=== PATIENT | male | born 1975 | race Caucasian/White ===

== ENCOUNTER 2017-08-13 11:47 | Emergency (ER) | payer OTHER ==
--- NOTE | 2017-08-13 14:00 | ED Physician Documentation ---
History of Present Illness - Stated complaint Stated Complaint: R FOOT SWOLLEN/REDNESS - Chief complaint Chief Complaint: Ext Problem - History obtained from History obtained from: Patient - History of Present Illness Timing: How many days ago (2) Pain level max: 9 Pain level now: 5 - Additonal information Additional information: Patient is a 41-year-old male who presents to the emergency department with redness swelling and pain to the right first metatarsal phalangeal joint. Does not have a history of similar, but there is a strong family history of gout. Had been on meloxicam, but stopped this due for upcoming eye surgery. Pain is worse with weightbearing, better with rest. No fevers. No injury. Review of Systems Constitutional: denies: Fever Skin: denies: Rash Musculoskeletal: denies: Neck pain, Back pain Neurologic: denies: Headache PD PAST MEDICAL HISTORY - Past Medical History Past Medical History: No - Present Medications Home Medications: Ambulatory Orders Medication Instructions Recorded Confirmed predniSONE [Prednisone] 40 mg PO DAILY #10 tablet 08/13/17 - Allergies Allergies/Adverse Reactions: Allergies Allergy/AdvReac Type Severity Reaction Status Date / Time No Known Drug Allergies Allergy Verified 08/13/17 12:06 - Living Situation Living Situation: reports: With family Living Arrangement: reports: At home - Social History Does the pt have substance abuse?: No PD ED PE NORMAL - Vitals Vital signs reviewed: Yes - General General: Alert and oriented X 3, No acute distress - Derm Derm: Warm and dry - Extremities Extremities: Other (R 1st MTP - erythematous, mild swelling. no warmth. FROM. NVI. ) - Neuro Neuro: Alert and oriented X 3 - Psych Psych: Normal mood, Normal affect Results - Vitals Vitals: Vital Signs - 24 hr 08/13/17 08/13/17 12:01 14:47 Temperature 36.8 C 37.2 C Heart Rate 82 73 Respiratory 16 20 Rate Blood Pressure 148/89 H 131/90 H O2 Saturation 98 97 Oxygen O2 Source Room air PD MEDICAL DECISION MAKING - ED course Complexity details: considered differential, d/w patient, d/w family ED course: Patient is a 41-year-old male who presents to the emergency department with what appears to be gouty arthritis. Likely if this flared since stopping his meloxicam for his upcoming surgery. Given colchicine here and will place on a short course of prednisone. Placed in a postoperative shoe for comfort. No evidence of infection, septic joint. Patient counseled regarding signs and symptoms for which I believe and urgent re-evaluation would be necessary. Patient with good understanding of and agreement to plan and is comfortable going home at this time This document was made in part using voice recognition software. While efforts are made to proofread this document, sound alike and grammatical errors may occur. Departure - Departure Disposition: 01 Home, Self Care Clinical Impression: Gouty arthritis of right great toe Condition: Good Instructions: ED Arthritis Gout Follow-Up: Provider,Other [Primary Care Provider] - Within 1 week Prescriptions: predniSONE [Prednisone] 40 mg PO DAILY #10 tablet Comments: Return if you worsen. Take all prednisone until gone. Drink plenty of water. Discharge Date/Time: 08/13/17 14:47
[2017-08-13] MEDS ORDERED: COLCHICINE 0.6 MG TABLET PO STA (14:01)
[2017-08-13 14:48] VITALS: BP 131/90
== END 2017-08-13 14:47 | disposition home or self-care (01) ==
LOC: ED 11:47
DX: M10.9 Gout, unspecified (principal)
CPT/HCPCS: 99283; A9270